=== PATIENT | female | born 1950 | race Caucasian/White ===

== ENCOUNTER 2020-01-08 11:24 | Outpatient (CLI) | payer OTHER, SELFPAY ==
--- NOTE | ~2020-01-08 | MMUS_ITS ---
EXAMINATION: MM diag pao implant BI w oriana, US breast BI limited HISTORY: Breast pain at the 11:00 location in the right breast at 4:00 location in the left breast TECHNIQUE: Craniocaudal, mediolateral, and mediolateral oblique 3-D tomosynthesis images with implant displacement of the breasts were performed and synthetic 2-D images were generated. Craniocaudal an d mediolateral oblique views of the breasts without implant displacement were obtained using full fie ld digital mammography. CAD analysis was submitted and interpreted. COMPARISON: No prior mammogram is currently available for comparison BREAST PARENCHYMAL COMPOSITION: The breasts are heterogeneously dense, which may obscure small masses . FINDINGS: MAMMOGRAPHIC FINDINGS: There is no evidence of suspicious mass, calcification, or architectural distortion to suggest malig godwin. No mammographic correlate is identified for the reported pain in either breast. ULTRASOUND: There is no evidence of focal abnormal solid or cystic lesion in the vicinity of the patient's report ed pain in either breast. IMPRESSION: 1. No specific mammographic or sonographic correlate is identified for the patient's reported pain in either breast. Further evaluation at this time should be based on clinical assessment. Continued fol low-up physical examination is recommended. 2. Recommend routine screening mammography in one year. BI-RADS Category 1: Negative Reviewed, dictated and finalized at location A. IMPRESSION: 1. No specific mammographic or sonographic correlate is identified for the bret ent's reported pain in either breast. Further evaluation at this time should be based on clinical assessment. Continued follow-up physical examination is jay mmended. 2. Recommend routine screening mammography in one year. BI-RADS Category 1: Negative
--- NOTE | ~2020-01-08 | XR_ITS ---
EXAMINATION: XR knee LT min 4V DATE: 01/08/2020 12:53 INDICATION: Left knee pain. TECHNIQUE: 4 views of left knee were obtained. COMPARISON: Left knee radiographs 11/01/2010 FINDINGS: Bone alignment is normal. No fracture. There is mild osteoarthritis of medial and patellofe moral compartments characterized by tiny marginal osteophytes. No knee joint effusion. IMPRESSION: 1. Mild left knee osteoarthritis. Reviewed, dictated and finalized at location A.
[2020-01-08 14:05] LABS: Anion Gap 11 mmol/L (8-16); Blood Urea Nitrogen 16 mg/dL (7-17); Calcium 9.3 mg/dL (8.4-10.2); Carbon Dioxide 23 mmol/L (22-30); Chloride 110 mmol/L (98-107); Estimated Glomerular Filt Rate 55; Glucose 91 mg/dL (65-105); Potassium 3.5 mmol/L (3.4-5.0); Sodium 144 mmol/L (137-145)
== END 2020-01-08 11:25 | disposition home or self-care (01) ==
LOC: ANHIMG 11:27
PROVIDERS: PCP Family Medicine; Visit Provider Family Medicine
DX: N64.4 Mastodynia (principal); R79.89 Other specified abnormal findings of blood chemistry; M17.12 Unilateral primary osteoarthritis, left knee
CPT/HCPCS: 36415; 73564; 76642; 77062; 77066; 80048; G0279

== ENCOUNTER 2021-04-05 11:00 | Outpatient (RCR) | payer OTHER, SELFPAY | END 2021-04-05 23:59 | disposition home or self-care (01) | LOC: ANHAUDIO 11:00 | PROVIDERS: PCP Family Medicine; Visit Provider Family Medicine | DX: Z46.1 Encounter for fitting and adjustment of hearing aid (principal) | CPT/HCPCS: 99199; V5221; V5240 ==